=== PATIENT | male | born 1985 | race Caucasian/White ===

== ENCOUNTER 2020-03-17 18:44 | Emergency (ER) | payer BC, MEDICAID ==
[2020-03-17] MEDS ORDERED: Sodium Chloride 0.9% 1,000 ML IV SCH (19:00)
[2020-03-17] MEDS ORDERED: HYDROmorphone 0.5 MG/0.5 ML Syringe IVPUSH ONE ×2 (19:06→19:22)
[2020-03-17] MEDS ORDERED: Sodium Chloride 0.9% 10 ML Syringe FLUSH PRN (19:22)
[2020-03-17] MEDS ORDERED: Iopamidol 612 MG/ML 100 ML Bottle IV SCH (19:30)
[2020-03-17] MEDS ORDERED: Sodium Chloride 0.9% 80 ML IV SCH (19:30)
--- NOTE | 2020-03-17 19:38 | EDM.PDOC ---
ED HPI GENERAL MEDICAL PROBLEM - General Chief Complaint: Trauma Stated Complaint: TREE FELL ON PATIENT Time Seen by Provider: 03/17/20 18:50 Source of Information: Reports: Patient History Limitations: Reports: No Limitations - History of Present Illness INITIAL COMMENTS - FREE TEXT/NARRATIVE: 34-year-old male who was cutting down a fairly large tree when it fell at an awkward angle and caught him on the posterior right shoulder pinning him down and rolling across the right side of his body his right hip and his right leg. He managed to get free but according to witnesses he was spent in "awkward angles". He felt his right hip pop at one point and is having difficulty bearing weight. He has an abrasion on his right shoulder, some generalized right lower back discomfort, right hip and pelvis discomfort and pain radiating down the right leg. He did not sustain any head or neck injury, he has no shortness of breath, abdominal pain, nausea or vomiting or active bleeding. This occurred within 30 minutes of arrival. Onset: Sudden Location: Reports: Back, Pelvis, Upper Extremity, Right, Lower Extremity, Right Quality: Reports: Ache, Throbbing Severity: Moderate Associated Symptoms: Reports: Diaphoresis. Denies: Confusion, Chest Pain, C ough, Fever/Chills, Nausea/Vomiting, Shortness of Breath - Related Data Allergies Allergy/AdvReac Type Severity Reaction Status Date / Time No Known Allergies Allergy Verified 03/17/20 19:04 Home Meds: Home Meds NK [No Known Home Meds] 03/17/20 [History] Review of Systems - Review of Systems Review Of Systems: See Below Constitutional: Denies: Fever Eyes: Reports: No Symptoms Ears: Reports: No Symptoms Nose: Reports: No Symptoms Respiratory: Denies: Shortness of Breath, Pleuritic Chest Pain Cardiovascular: Denies: Chest Pain GI/Abdominal: Denies: Abdominal Pain Musculoskeletal: Reports: Shoulder Pain, Back Pain, Leg Pain (Right side). Denies: Neck Pain Skin: Reports: Bruising (Scattered abrasions and bruising on the shoulder, right elbow, right hip area) Neurological: Reports: Paresthesia (Feels a paresthetic type feeling down his right leg, some numbness especially medial on the thigh) Psychiatric: Reports: No Symptoms ED EXAM, GENERAL - Physical Exam Exam: See Below Free Text/Narrative:: Magan Coma Scale is 15, vitals are stable, primary evaluation is completely n ormal Exam Limited By: No Limitations General Appearance: Alert, Mild Distress (Fairly uncomfortable associated with his right hip and leg discomfort) Eye Exam: Bilateral Eye: Normal Inspection Head: Atraumatic Neck: Supple, Non-Tender Respiratory/Chest: No Respiratory Distress, Lungs Clear Cardiovascular: Regular Rate, Rhythm GI/Abdominal: Soft, Non-Tender Back Exam: Paraspinal Tenderness (Significant palpation tenderness along the right aspect of the lumbar spine), Other. No: Vertebral Tenderness Extremities: Other (Superficial abrasion on the posterior right shoulder and extensor surface of the right elbow at the forearm but full passive and active range of motion of the arm without significant pain. He does have significant discomfort with passive range of motion of the right pelvis and palpation tenderness in the right groin. A small amount of generalized tenderness around the knee but no deformity effusion abrasion or bruising.) Neurological: Alert, Oriented, No Motor/Sensory Deficits Psychiatric: Normal Affect, Normal Mood Skin Exam: Warm, Dry, Other (Superficial abrasions as described above) Course - Vital Signs Last Recorded V/S: Last Vital Signs Temp 97.6 F 03/17/20 18:48 Pulse 82 03/17/20 18:48 Resp 10 L 03/17/20 18:48 BP 141/84 H 03/17/20 18:48 Pulse Ox 100 03/17/20 18:48 - Orders/Labs/Meds Orders: Active Orders 24 hr Category Date Time Status Vaccines to be Administered [RC] PER UNIT ROUTINE Care 03/17/20 20:33 Active DME for Discharge [COMM] Stat Oth 03/17/20 20:59 Ordered Labs: Laboratory Tests 03/17/20 03/17/20 Range/Units 18:50 18:50 WBC 12.1 H (4.5-11.0) K/uL RBC 4.86 (4.30-5.90) M/uL Hgb 14.7 (12.0-15.0) g/dL Hct 43.3 (40.0-54.0) % MCV 89 (80-98) fL MCH 30 (27-31) pg MCHC 34 (32-36) % Plt Count 219 (150-400) K/uL Neut % (Auto) 48 (36-66) % Lymph % (Auto) 39 (24-44) % [place] % (Auto) 11 H (2-6) % Eos % (Auto) 1 L (2-4) % Baso % (Auto) 0 (0-1) % Sodium 141 (140-148) mmol/L Potassium 3.6 (3.6-5.2) mmol/L Chloride 103 (100-108) mmol/L Carbon Dioxide 25 (21-32) mmol/L Anion Gap 12.7 (5.0-14.0) mmol/L BUN 18 (7-18) mg/dL Creatinine 1.1 (0.8-1.3) mg/dL Est Cr Clr Drug Dosing 105.82 mL/min Estimated GFR (MDRD) > 60 (>60) Glucose 105 (74-106) mg/dL Calcium 9.5 (8.5-10.1) mg/dL Total Bilirubin 0.5 (0.2-1.0) mg/dL AST 43 H (15-37) U/L ALT 64 (12-78) U/L Alkaline Phosphatase 47 (46-116) U/L Total Protein 8.2 (6.4-8.2) g/dL Albumin 4.3 (3.4-5.0) g/dL Globulin 3.9 H (2.3-3.5) g/dL Albumin/Globulin Ratio 1.1 L (1.2-2.2) Meds: Medications Discontinued Medications Generic Name Dose Route Start Last Admin Trade Name Freq PRN Reason Stop Dose Admin Diphtheria/Tetanus/Acell Pertussis 0.5 ml 03/17/20 20:33 03/17/20 20:43 Adacel IM 03/17/20 20:34 0.5 ml .ONCE ONE Administration Hydromorphone HCl 0.5 mg 03/17/20 19:06 03/17/20 19:12 Dilaudid IVPUSH 03/17/20 19:07 0.5 mg ONETIME ONE Administration Hydromorphone HCl 0.5 mg 03/17/20 19:22 03/17/20 19:29 Dilaudid IVPUSH 03/17/20 19:23 0.5 mg ONETIME ONE Administration Sodium Chloride 1,000 mls @ 1,000 mls/hr 03/17/20 19:00 03/17/20 19:02 Normal Saline IV 1,000 mls/hr ASDIRECTED NASIR Administration Sodium Chloride 80 mls @ 3 mls/sec 03/17/20 19:30 03/17/20 19:37 Normal Saline IV 3 mls/sec ASDIRECTED NASIR Administration Iopamidol 100 ml 03/17/20 19:30 03/17/20 19:37 Isovue-300 (61%) IV 100 ml . DIRECTED NASIR Administration Ketorolac Tromethamine 30 mg 03/17/20 20:12 03/17/20 20:34 Toradol IVPUSH 03/17/20 20:13 30 mg ONETIME ONE Administration Sodium Chloride 10 ml 03/17/20 19:22 03/17/20 19:36 Saline Flush FLUSH 10 ml ASDIRECTED PRN Administration Keep Vein Open - Re-Assessments/Exams Free Text/Narrative Re-Assessment/Exam: 03/17/20 19:39 CBC and CMP were obtained, 1 L of normal saline bolused and the patient was sent back for traumatic chest abdomen and pelvis CT evaluation with IV contrast. He was given 2 doses of 0.5 mg of IV Dilaudid prior to the scan. He remained stable throughout. 03/17/20 21:[address] scan which showed no significant visceral injury, the patient was given 30 mg of IV Toradol which gave him some fair relief from his discomfort. CT report revealed transverse process fractures of L1-L4. Patient was able to bear weight and move around with a walker, so will be discharged on pain medication and will be rechecked early next week. 03/17/20 21:15 Labs are reassuring. He was also given a Tdap booster. Departure - Departure Time of Disposition: 21:35 Disposition: Home, Self-Care 01 Clinical Impression: Multiple transverse process fractures, Abrasion, multiple sites - Discharge Information Instructions: Transverse Process Fracture Referrals: PCP,None [Primary Care Provider] - Forms: ED Department Discharge Care Plan Goals: Take 1 ketorolac every 6-8 hours over the next 5 days, and add stronger pain medication if needed as prescribed. Ice to sore areas for the first 48 hours may be beneficial, and use walker to assist with ambulation. Return anytime if worsening or unable to tolerate symptoms as an outpatient. Consider rechecking next week at the clinic to discuss physical therapy or other methods of treatment. Sepsis Event Note (ED) - Focused Exam Vital Signs: Vital Signs Temp Pulse Resp BP Pulse Ox 03/17/20 18:48 97.6 F 82 10 L 141/84 H 100 - My Orders Last 24 Hours: My Active Orders 03/17/20 20:33 Vaccines to be Administered [RC] PER UNIT ROUTINE 03/17/20 20:59 DME for Discharge [COMM] Stat - Assessment/Plan Last 24 Hours: My Active Orders 03/17/20 20:33 Vaccines to be Administered [RC] PER UNIT ROUTINE 03/17/20 20:59 DME for Discharge [COMM] Stat
[2020-03-17] MEDS ORDERED: Ketorolac 30 MG/ML SDV IVPUSH ONE (20:12)
[2020-03-17] MEDS ORDERED: Diphtheria,Pertussis(Acell),Tetanus Vaccine 0.5 ML SDV IM ONE (20:33)
--- NOTE | 2020-03-17 20:53 | CRLCT ---
INDICATION: Trauma TECHNIQUE: CT chest, abdomen and pelvis acquired with IV contrast. 100 mL of Isovue-300 administered. COMPARISON: None available FINDINGS: Chest: Cardiovascular structures: Heart size is normal. Thoracic aorta and main pulmonary artery are normal in caliber. Mediastinum and darell: No mass or adenopathy. Lungs: No consolidation. No pneumothorax. A 9 x 5 mm left upper lobe nodule on image 36 of series 4. Pleura and pericardium: No effusions. Chest wall and axilla: No mass or adenopathy. Bones: Apparent small faint curvilinear lucencies in the anterior left 2nd rib. Abdomen and Pelvis: Liver: Slight steatosis. Spleen: A small subtle and ill-defined sub centimeter low-attenuation focus in the superior spleen on image 99 of series 3, nonspecific and possibly artifactual. Pancreas: Unremarkable. Gallbladder and bile ducts: Unremarkable. Adrenal glands: Unremarkable. Kidneys: Unremarkable. GI tract: Unremarkable. Appendix is normal. Vascular structures: Unremarkable. Lymph nodes: Unremarkable. Miscellaneous: No significant free fluid or free air. A small fat containing umbilical hernia. Pelvic Organs: Unremarkable. Bones: Fractures of the right L1-L4 transverse processes. Several small curvilinear calcifications in the soft tissues anteroinferior to the right hip joint with a small focus of regional soft tissue gas on image 216, as well as mild soft tissue irregularity and suspected small blood products along the medial aspect of the distal right iliopsoas myotendinous region. Tiny calcific densities also seen adjacent to the posteroinferior aspect of the right acetabular margin. IMPRESSION: No CT evidence of a visceral or vascular injury within the chest, abdomen or pelvis. Acute fractures of the right L1-L4 transverse processes. Small faint curvilinear lucencies in the anterior left 2nd rib. Correlate for regional tenderness to exclude a nondisplaced fracture. Small curvilinear calcifications inferior to the right hip joint which could represent small fracture fragments off of the inferior right acetabular lip, with probable blood products along the medial aspect of the right iliopsoas myotendinous region. Correlate for history of recent right hip dislocation. A 9 mm left pulmonary nodule which could be post inflammatory in a patient of this age, however follow-up, per the Fleischner Society recommendations. Dictated by Maciej Summers MD @ 03/17/2020 8:50:27 PM Please note that all CT scans at this facility use dose modulation, iterative reconstruction, and/or weight-based dosing when appropriate to reduce radiation dose to as low as reasonably achievable. Dictated by: Mcaiej Summers MD @ 03/17/2020 20:51:12 (Electronically Signed)
== END 2020-03-17 21:23 | disposition home or self-care (01) ==
LOC: JP.ED 18:44
DX: S32.019A Unspecified fracture of first lumbar vertebra, initial encounter for closed fracture (principal); S32.029A Unspecified fracture of second lumbar vertebra, initial encounter for closed fracture; S32.039A Unspecified fracture of third lumbar vertebra, initial encounter for closed fracture; S32.049A Unspecified fracture of fourth lumbar vertebra, initial encounter for closed fracture; S40.211A Abrasion of right shoulder, initial encounter; S50.811A Abrasion of right forearm, initial encounter; Z23 Encounter for immunization; W20.8XXA Other cause of strike by thrown, projected or falling object, initial encounter
CPT/HCPCS: 36415; 71260; 74177; 80053; 85025; 90471; 90715; 96374; 96375; 99284; J1170; J1885; J7030; J7050; Q9967

== ENCOUNTER 2025-08-11 20:11 | Emergency (ER) | payer BC, OTHER, SELFPAY ==
[2025-08-11] MEDS: Diphtheria,Pertussis(Acell),Tetanus Vaccine 0.5 ML Syringe IM ONE (23:38)
[2025-08-11] MEDS: Bacitracin Oint 1 GM U/D Packet TOP ONE (23:39)
== END 2025-08-12 00:18 | disposition home or self-care (01) ==
LOC: JP.ED 20:11
DX: S61.213A Laceration without foreign body of left middle finger without damage to nail, initial encounter (principal); W45.8XXA Other foreign body or object entering through skin, initial encounter; Y93.G3 Activity, cooking and baking; Z23 Encounter for immunization
CPT/HCPCS: 12002; 90471; 90715; 99282; 99283; J2003